=== PATIENT | male | born 1965 | race Caucasian/White ===

== ENCOUNTER 2022-08-31 10:44 | Emergency (ER) | payer OTHER, SELFPAY ==
--- NOTE | 2022-08-31 10:49 | ED.GENADUL_ITS ---
Discharge Plan Disposition Patient Disposition: Home Discharge Details Clinical Impression: Tick bite of right upper arm Primary Care Provider: Unknown,Unknown ED Provider: Ceasar Goel Home Meds and New Rx's Prescriptions: No Action No Known Home Meds Discharge Instructions Instructions: Tick Bite (ED) Additional Instructions: You are seen in the emergency department for your tick bite. As we discussed if you develop significant swelling redness fevers or rash please return to the emergency department. Otherwise please follow-up as needed with your primary care provider next week. Medical Decision Making This is a very well-appearing normothermic and not tachycardic [id number] 57-year-old male with reported tick bite to posterior aspect of right upper extremity not meeting criteria for prophylaxis given tick was nonengorged and attached at most several hours. Patient wanted to keep the tick to send it in for testing. No significant erythema to suggest cellulitis. No signs of erythema migrans. No shortness of breath or chest pain to suggest Lyme carditis. Tick was removed by nursing. No pain out of proportion to suggest necrotizing soft tissue infection. I advised watching the area to ensure that he did not develop a rash or any significant redness or swelling. If he develops a rash or redness I advised ED return for reassessment. Otherwise will discharge with PCP follow-up as needed. HPI General Date/Time Provider Initiated Documentation: 08/31/22 10:48 . HPI Narrative: This is a previously healthy [id number] 57-year-old male with reported tick bite to right upper extremity earlier this morning. Patient reported that he was going outside and getting some wood. He came back in and noticed a tick had bitten his right upper extremity. It was not engorged. He came into the emergency department. No surrounding erythema. He has not had any recent fevers nor shortness of breath. He denies any falls or trauma to his right upper extremity. Related Data Home Medications Medication Instructions Recorded Confirmed Unknown [No Known Home Meds] 08/31/22 08/31/22 Allergies Allergy/AdvReac Type Severity Reaction Status Date / Time No Known Allergies Allergy Unverified 08/31/22 11:00 [facility] All Active Problems (Updated 08/31/22 @ 11:17 by Ceasar Goel MD) Tick bite of right upper arm (Acute) Social History Smoking/Tobacco Use Status: Never Smoking risk assessment performed?: Yes Alcohol Intake: never Drug use: Never Substance use type: does not use Do you feel safe at home: Yes Do you feel safe in your relationship?: Yes Exam Narrative Exam Narrative: General: Well-appearing in no acute distress speaking in complete sentences. Head: Normocephalic, atraumatic. Eye: Extraocular eye movements intact. No conjunctival injection. No scleral icterus. Ear, nose, mouth, throat: Grossly normal inspection. Normal voice, handling secretions normally. Neck: Trachea midline. Cardiovascular: Well-perfused distal extremities. Respiratory: Nonlabored respiration. Gastrointestinal: Nondistended abdomen. Musculoskeletal: Posterior aspect of right upper extremity with no significant erythema. No significant signs of trauma. No rash. No tenderness. No pain out of proportion.. Skin: Normal for age and race, grossly normal temperature and turgor. No acute rash. Neurologic: Alert and appropriate, no apparent acute deficits. Psychiatric: Mood and manner are appropriate. Grooming and personal hygiene are appropriate.
[2022-08-31 10:56] VITALS: BP 97/73; PULSE 60; RESP 16; TEMP 36.9; O2SAT 95
[2022-08-31 11:21] VITALS: BP 97/73; PULSE 60; RESP 16; TEMP 36.9; O2SAT 95
--- NOTE | 2022-09-06 09:45 | NUR.NOTE ---
Nursing Note: Patient called and spoke with switchboard this morning @ 0913. Stated that he sent the tick out for testing after his ED visit and that it came back positive. We did not treat him, [facility].
== END 2022-08-31 11:25 | disposition home or self-care (01) ==
PROVIDERS: Emergency Provider Emergency Medicine
DX: S40.861A Insect bite (nonvenomous) of right upper arm, initial encounter (principal); W57.XXXA Bitten or stung by nonvenomous insect and other nonvenomous arthropods, initial encounter
CPT/HCPCS: 99282